=== PATIENT | female | born 1985 | race Caucasian/White ===

== ENCOUNTER 2017-10-12 08:43 | Emergency (ER) | payer OTHER ==
--- NOTE | 2017-10-12 09:36 | ER Document Report ---
ED Medical Screen (RME) - General Chief Complaint: Pain All Over Stated Complaint: BODY ACHES AND PAIN Time Seen by Provider: 10/12/17 09:20 Mode of Arrival: Ambulatory Information source: Patient Notes: 32-year-old female presents to ED for complaint of body all over worse pain to the tips of the fingers and toes. She states she has been on metformin for prediabetes and that is when the body aches started several months ago. They put her on losartan for blood pressure and the pain got worse. She states she stopped taking the metformin a couple weeks ago and she has not taken her blood pressure medicine today. Her lungs are clear to auscultation respirations regular and unlabored and walks with a steady gait. She states she has severe pain in both hands arms legs and feet. States she just moved here and does not have a primary doctor to follow-up with. I have greeted and performed a rapid initial assessment of this patient. A comprehensive ED assessment and evaluation of the patient, analysis of test results and completion of medical decision making process will be conducted by an additional ED providers. TRAVEL OUTSIDE OF THE [place] IN LAST 30 DAYS: No - Related Data Allergies/Adverse Reactions: amoxicillin trihydrate [From Augmentin] Allergy (Verified 10/12/17 08:51) Potassium Clavulanate * [From Augmentin] Allergy (Verified 10/12/17 08:51) sulfamethoxazole [From Bactrim] Allergy (Verified 10/12/17 08:51) trimethoprim [From Bactrim] Allergy (Verified 10/12/17 08:51) Past Medical History - Social History Chew tobacco use (# tins/day): No Frequency of alcohol use: None Drug Abuse: None - Past Medical History Cardiac Medical History: Reports: Hx Hypertension Endocrine Medical History: Reports: Hx Diabetes Mellitus Type 2 - pre Renal/ Medical History: Denies: Hx Peritoneal Dialysis Physical Exam - Vital signs Vitals: Temp Pulse Resp BP Pulse Ox 97.8 F 61 14 140/83 H 98 10/12/17 08:48 10/12/17 08:48 10/12/17 08:48 10/12/17 08:48 10/12/17 08:48 Course - Vital Signs Vital signs: Temp Pulse Resp BP Pulse Ox 97.8 F 61 14 140/83 H 98 10/12/17 08:48 10/12/17 08:48 10/12/17 08:48 10/12/17 08:48 10/12/17 08:48
[2017-10-12 10:41] LABS: ABSOLUTE EOSINOPHILS # (AUTO) 0.2 10^3/uL (0.0-0.6); ABSOLUTE LYMPHOCYTES (AUTO) 1.5 10^3/uL (0.5-4.7); ABSOLUTE MONOCYTES (AUTO) 0.4 10^3/uL (0.1-1.4); ABSOLUTE NEUT (AUTO) 3.6 10^3/uL (1.7-8.2); BASOPHILS % (AUTO) 0.7 % (0-2); EOSINOPHILS % (AUTO) 3.5 % (0-6); HEMATOCRIT 42.5 % (36.0-47.0); HEMOGLOBIN 14.1 g/dL (12.0-15.5); MEAN CORPUSCULAR HEMOGLOBIN 27.4 pg (27.0-33.4); MEAN CORPUSCULAR HGB CONC 33.2 g/dL (32.0-36.0); MEAN CORPUSCULAR VOLUME 83 fl (80-97); MONOCYTES % (AUTO) 7.2 % (3-13); PLATELET COUNT 339 10^3/uL (150-450); RED BLOOD COUNT 5.15 10^6/uL (3.72-5.28); SEGMENTED NEUTROPHILS % (AUTO) 62.6 % (42-78); TOTAL CELLS COUNTED % (AUTO) 100 %; WHITE BLOOD COUNT 5.7 10^3/uL (4.0-10.5)
[2017-10-12 10:46] LABS: AMORPHOUS SEDIMENT,URINE TRACE /HPF; APPEARANCE,URINE SLIGHTLY-CLOUDY; BILIRUBIN,URINE NEGATIVE (NEGATIVE); COLOR,URINE YELLOW; GLUCOSE, URINE NEGATIVE (NEGATIVE); KETONES,URINE NEGATIVE (NEGATIVE); LEUKOCYTE ESTERASE,URINE TRACE (NEGATIVE); NITRITE,URINE NEGATIVE (NEGATIVE); PROTEIN,URINE NEGATIVE (NEGATIVE); URINE SPECIFIC GRAVITY 1.009; UROBILINOGEN,URINE NEGATIVE mg/dL (<2.0)
[2017-10-12 11:03] LABS: ALANINE AMINOTRANSFERASE 33 U/L (9-52); ALBUMIN 4.4 g/dL (3.5-5.0); ALKALINE PHOSPHATASE 63 U/L (38-126); ANION GAP 12 (5-19); ASPARTATE AMINO TRANSFERASE 23 U/L (14-36); BILIRUBIN,DIRECT 0.2 mg/dL (0.0-0.4); BILIRUBIN,TOTAL 1.1 mg/dL (0.2-1.3); BLOOD UREA NITROGEN 12 mg/dL (7-20); CALCIUM 9.6 mg/dL (8.4-10.2); CARBON DIOXIDE 25 mmol/L (22-30); CHLORIDE 104 mmol/L (98-107); CREATINE KINASE 63 U/L (30-135); GLUCOSE 98 mg/dL (75-110); POTASSIUM 4.2 mmol/L (3.6-5.0); SODIUM 140.5 mmol/L (137-145); TOTAL PROTEIN 7.7 g/dL (6.3-8.2)
[2017-10-12 11:55] VITALS: BP 135/79
--- NOTE | 2017-10-12 12:00 | ER Document Report ---
ED General - General Chief Complaint: Pain All Over Stated Complaint: BODY ACHES AND PAIN Time Seen by Provider: 10/12/17 09:20 Mode of Arrival: Ambulatory TRAVEL OUTSIDE OF THE [place] IN LAST 30 DAYS: No - HPI Patient complains to provider of: Diffuse myalgias Notes: Patient coming in for her chronic issue of diffuse myalgias. Patient states ongoing greater than 48 hours. Patient states was on metformin for PCO S however has been off this for approximately 3 weeks. Was initially off of her blood pressure medication losartan however restarted this recently. Patient states recently moved to the area has not stabbed herself with her primary care physician. Denies any fevers chills nausea vomiting diarrhea. Patient resting healthy upon my evaluation. - Related Data Allergies/Adverse Reactions: amoxicillin trihydrate [From Augmentin] Allergy (Verified 10/12/17 08:51) Potassium Clavulanate * [From Augmentin] Allergy (Verified 10/12/17 08:51) sulfamethoxazole [From Bactrim] Allergy (Verified 10/12/17 08:51) trimethoprim [From Bactrim] Allergy (Verified 10/12/17 08:51) Past Medical History - General Information source: Patient - Social History Smoking Status: Never Smoker Chew tobacco use (# tins/day): No Frequency of alcohol use: None Drug Abuse: None Family History: None Patient has suicidal ideation: No Patient has homicidal ideation: No - Past Medical History Cardiac Medical History: Reports: Hx Hypertension Endocrine Medical History: Reports: Hx Diabetes Mellitus Type 2 - pre Renal/ Medical History: Denies: Hx Peritoneal Dialysis Past Surgical History: Reports: Hx Breast Surgery - left breast lumpectomy Review of Systems - Review of Systems Constitutional: Weakness - Myalgias EENT: No symptoms reported Cardiovascular: No symptoms reported Respiratory: No symptoms reported Gastrointestinal: No symptoms reported Genitourinary: No symptoms reported Female Genitourinary: No symptoms reported Musculoskeletal: No symptoms reported Skin: No symptoms reported Hematologic/Lymphatic: No symptoms reported Neurological/Psychological: No symptoms reported -: Yes All other systems reviewed and negative Physical Exam - Vital signs Vitals: Temp Pulse Resp BP Pulse Ox 97.8 F 61 14 140/83 H 98 10/12/17 08:48 10/12/17 08:48 10/12/17 08:48 10/12/17 08:48 10/12/17 08:48 Interpretation: Normal - General General appearance: Appears well, Alert - HEENT Head: Normocephalic, Atraumatic Eyes: Normal Pupils: PERRL - Respiratory Respiratory status: No respiratory distress Chest status: Nontender Breath sounds: Normal Chest palpation: Normal - Cardiovascular Rhythm: Regular Heart sounds: Normal auscultation Murmur: No - Abdominal Inspection: Normal Distension: No distension Bowel sounds: Normal Tenderness: Nontender Organomegaly: No organomegaly - Back Back: Normal, Nontender - Extremities General upper extremity: Normal inspection, Nontender, Normal color, Normal ROM , Normal temperature General lower extremity: Normal inspection, Nontender, Normal color, Normal ROM , Normal temperature, Normal weight bearing. No: Selena's sign - Neurological Neuro grossly intact: Yes Cognition: Normal Orientation: AAOx4 Amina Coma Scale Eye Opening: Spontaneous Amina Coma Scale Verbal: Oriented Amina Coma Scale Motor: Obeys Commands Amina Coma Scale Total: 15 Speech: Normal Motor strength normal: LUE, RUE, LLE, RLE Sensory: Normal - Psychological Associated symptoms: Normal affect, Normal mood - Skin Skin Temperature: Warm Skin Moisture: Dry Skin Color: Normal Course - Re-evaluation Re-evalutation: 10/12/17 19:59 Laboratory studies show no acute findings. Recommend patient follow-up with primary care physician for further evaluation of her underlying PCO S and medication choices for treatment. Patient states understanding. Patient will be discharged home. - Vital Signs Vital signs: Temp Pulse Resp BP Pulse Ox 97.8 F 58 L 18 135/79 H 99 10/12/17 11:49 10/12/17 11:49 10/12/17 11:49 10/12/17 11:49 10/12/17 11:49 - Laboratory Result Diagrams: 10/12/17 09:55 10/12/17 09:55 Laboratory results interpreted by me: 10/12/17 09:55 Ur Leukocyte Esterase TRACE H Discharge - Discharge Clinical Impression: Myalgia Disposition: HOME, SELF-CARE Instructions: Myalagia (Muscle Pain) ([facility]) Additional Instructions: Your workup today shows no signs of any critical pathology. Please make sure you are drinking plenty water to stay hydrated. Please make sure you are eating a healthy diet. Will recommend taking Tylenol and Motrin as prescribed for your pain. Return to ER symptoms worsen. Prescriptions: Ibuprofen [Motrin 600 mg Tablet] 600 mg PO Q8HP PRN #21 tablet PRN Reason: Forms: Return to Work
== END 2017-10-12 12:02 | disposition home or self-care (01) ==
LOC: ER 08:43
DX: M79.1 Myalgia (principal); I10 Essential (primary) hypertension; E28.2 Polycystic ovarian syndrome; T38.3X6A Underdosing of insulin and oral hypoglycemic [antidiabetic] drugs, initial encounter; Z91.128 Patient's intentional underdosing of medication regimen for other reason; Z91.14 Patient's other noncompliance with medication regimen; R53.1 Weakness; Z88.0 Allergy status to penicillin; Z88.1 Allergy status to other antibiotic agents
CPT/HCPCS: 36415; 80053; 81001; 82550; 83690; 84443; 84702; 85025; 99283